=== PATIENT | female | born 1985 | race Caucasian/White ===

== ENCOUNTER → 2019-09-29 09:48 | Outpatient (CLI) | payer MEDICAID | END | disposition home or self-care (01) | LOC: D.US 09:48 | PROVIDERS: ATTEND General Practice | DX: R10.11 Right upper quadrant pain (principal); R11.2 Nausea with vomiting, unspecified ==

== ENCOUNTER 2019-10-13 05:19 | Day surgery (SDC) | payer MEDICAID ==
[~2019-10-13] VITALS: Ht 170.2 cm; Wt 99.8 kg
[~2019-10-13 05:19] MED LIST: BUPROPION HCL75 MG PO; BUSPAR10 MG PO; LISINOPRIL-HCT1 EAC4 PO
[2019-10-13 05:45] LABS: HEMOGLOBIN 13.5 g/dL (12-16); MCHC 32.9 g/dL (31.0-37.0); MCV 91.1 fL (80.0-100.0); MEAN PLATELET VOLUME 10.4 fL (7.4-10.4); RBC 4.5 10x6/uL (4.00-5.40); RDW 13.1 % (11.5-14.5); WBC 9.8 10x3/uL (4.8-10.8)
[2019-10-13 06:24] LABS: HCG SERUM NEGATIVE (NEGATIVE)
[2019-10-13 06:44] VITALS: BP 116/68; Ht 170.2 cm; Wt 99.8 kg
[2019-10-13] MEDS ORDERED: HYDROCODON-ACE1 EAC7 PO (08:59)
== END 2019-10-13 11:20 | disposition home or self-care (01) ==
LOC: D.OPS 05:19
PROVIDERS: Anesthesiology; ATTEND Surgery
DX: K80.20 Calculus of gallbladder without cholecystitis without obstruction (principal); I10 Essential (primary) hypertension